=== PATIENT | male | born 1955 | race American Indian/Alaskan Native ===

== ENCOUNTER 2019-11-05 07:08 | Day surgery (SDC) | payer BC ==
[~2019-11-05 07:08] MED LIST: GENTAMICIN/NS 80 MG/100 ML 100 ML IV SCH; LACTATED RINGERS 1,000 ML IV SCH; MIDAZOLAM 2 MG/2 ML INJ IV NR; ceFAZolin/STERILE WATER 2 GM/20 ML SYRINGE IV NR
--- NOTE | 2019-11-05 08:21 | Anesthesia Consultation ---
Anesthesia Consult and Med Hx Date of service: 11/05/19 - Airway Anesthetic Teeth Evaluation: Poor (2 remaining upper incisors) ROM Head & Neck: Adequate Mental/Hyoid Distance: Adequate Mallampati Class: Class III Intubation Access Assessment: Possibly Difficult - Pulmonary Exam CTA: Yes - Cardiac Exam Cardiac Exam: RRR - Pre-Operative Health Status ASA Pre-Surgery Classification: ASA2 Proposed Anesthetic Plan: General - Pulmonary Hx Smoking: Yes (1/2 PPD X 31 YRS) Hx Respiratory Symptoms: No COPD: No Hx Sleep Apnea: No (SHOLA PRE SCREEN LOW RISK.) - Cardiovascular System Hx Hypertension: No Hx Heart Attack/AMI: No Hx Percutaneous Transluminal Coronary Angioplasty (PTCA): No Hx Cardia Arrhythmia: No - Central Nervous System CVA: No - Endocrine Hx Renal Disease: No Hx Liver Disease: No Hx Non-Insulin Dependent Diabetes: Yes Hx Thyroid Disease: No - Other Systems Hx Obesity: Yes (BMI 31)
--- NOTE | 2019-11-05 08:21 | Anesthesia Day of Surgery ---
Anesthesia Day of Surgery - Day of Surgery Patient Examined: Yes Patient H&P Reviewed: Yes Patient is NPO: Yes
[2019-11-05] MEDS ORDERED: fentaNYL 100 MCG/2 ML INJ IV PRN (08:22)
[2019-11-05] MEDS ORDERED: LIDOCAINE MPF (2%) 20 MG/1 ML VIAL 5 ML ONE (09:34)
[2019-11-05] MEDS ORDERED: HYDROmorphone 1 MG/1 ML INJ ONE (09:34)
[2019-11-05] MEDS ORDERED: propofoL 200 MG/20 ML VIAL IV ONE (09:34)
[2019-11-05] MEDS ORDERED: WATER FOR IRRIG STERILE 2000 ML IR ONE (10:20)
--- NOTE | 2019-11-05 10:29 | Short Stay Summary ---
Short Stay Documentation Date of service: 11/05/19 - History H&P: obtained from office - Allergies and Medications Current Medications: Allergies No Known Allergies Allergy (Unverified 10/25/19 16:07) Home Medications Medication Instructions Recorded Confirmed Last Taken Type Fish Oil 1 cap PO DAILY 10/25/19 10/25/19 11/04/19 History Iron 1 tab PO DAILY 10/25/19 10/25/19 11/04/19 History One-Daily Multi-Vitamin 1 tab PO DAILY 10/25/19 10/25/19 11/04/19 History Tamsulosin 0.4 mg PO HS 10/25/19 10/25/19 11/04/19 History metFORMIN 500 mg PO DAILY 10/25/19 10/25/19 11/04/19 History Active Medications Cefazolin Sodium (Ancef/Sterile Water 2 Gm/20 Ml) 2 gm IV PREOP NR Stop: 11/05/19 23:00 Fentanyl (Sublimaze) 50 mcg IV Q5MIN PRN PRN Reason: Pain , Severe (7-10) Stop: 11/05/19 23:00 Gentamicin Sulfate/Sodium Chloride (Gentamicin/Ns 80 Mg/100 Ml) 100 mls @ 200 mls/hr IV Q8H DORINDA Stop: 11/05/19 23:59 Lactated Ringer's (Lactated Ringers) 1,000 mls @ 100 mls/hr IV DIRECT DORINDA Stop: 11/05/19 23:59 Last Admin: 11/05/19 08:20 Dose: 100 mls/hr Documented by: Midazolam HCl (Versed) 2 mg IV PREOP NR Stop: 11/05/19 23:59 Last Admin: 11/05/19 08:22 Dose: 2 mg Documented by: - Brief post op/procedure progress note Date of procedure: 11/05/19 Pre-op diagnosis: elevated psa ,BPH Post-op diagnosis: same Procedure: cysto, rpg, pus bx 110cc gland Anesthesia: GETA Surgeon: TEE HARDY Estimated blood loss: minimal Specimen disposition: to lab (prostate bx) Condition: stable - Hospital course Hospital course: bactrim& norco - pt should have another set of scripts - Disposition Condition at discharge: Stable Disposition: DC-01 TO HOME OR SELFCARE Short Stay Discharge Plan Follow up with: FLORA ZAMARRIPA MD [Primary Care Provider] - 7 Days
[2019-11-05] MEDS ORDERED: ONDANSETRON 4 MG/2 ML INJ ONE (10:36)
--- NOTE | 2019-11-05 11:01 | Fluoroscopy Report ---
INTRAOPERATIVE FLUOROSCOPY: RETROGRADE UROGRAPHY INDICATION: ELEVATED PSA AND BPH. TECHNIQUE: Intraoperative spot images were obtained during the procedure. FINDINGS: There is unremarkable opacification of the ureters and renal collecting systems. Please see the opera tive report for further details. Fluoroscopy Time: 21 seconds. Fluoroscopy Images: 9. Signer Name: Phil Gregorio MD Signed: 11/05/2019 10:56 AM Workstation Name: [id number]
--- NOTE | 2019-11-05 11:24 | Operative Report ---
PREOPERATIVE DIAGNOSES: Elevated PSA, benign prostatic hypertrophy. POSTOPERATIVE DIAGNOSES: Elevated PSA, benign prostatic hypertrophy. PROCEDURE: Cystoscopy, bilateral retrograde pyelograms, transrectal ultrasound and biopsies of prostate (110 mL gland). SURGEON: King Vicente M.D. ANESTHESIA: General. ESTIMATED BLOOD LOSS: Minimal. FLUIDS: Crystalloid. COMPLICATIONS: No complications. INDICATIONS: This patient is a 64-year-old gentleman known to our service with an elevated PSA. He had a previous biopsy in the past that was negative. His PSA continues to increase. I was unable to get an MRI, presents now for evaluation and for biopsy. Risks, benefits, and complications were explained. DESCRIPTION OF PROCEDURE: The patient was taken to the operative suite, placed in the supine position. After adequate general anesthesia, placed in a dorsal lithotomy position, prepped and draped in a sterile fashion. Noonan-cystourethroscopy was performed with a 22-Austrian Storz cystoscope, no urethral abnormalities. His prostate displayed moderate bilobar obstruction. Both ureteral orifices in normal position. Does have some trabeculation diffusely. Bilateral retrograde pyelograms were obtained with an 8-Austrian Kossuth catheter and 8 mL of contrast. No filling defects or obstruction. He does have significant J hooking of the lower ureters. Next, using a transrectal prostate ultrasound, sagittal and transverse images were obtained. Total volume of 110 mL. No suspicious lesions could be appreciated. Template biopsy was taken at the base, mid, and apex bilaterally, 12 cores, 2 cores per sample. The patient tolerated the procedure well. Rectal exam was benign. He was extubated and taken to the recovery room in stable condition, to go home on Bactrim and Dumont. JOB# [id number] [facility]
[2019-11-05] MEDS ORDERED: HYDROcodone/ACETAMINOPHEN 5-325 MG TAB PO PRN (11:30)
[2019-11-05 11:40] VITALS: BP 152/83
--- NOTE | 2019-11-05 12:33 | Post Anesthesia Evaluation ---
- Post Anesthesia Evaluation Patient Participated: Yes Airway Patent: Yes Stable Respiratory Function: Yes Nausea/Vomiting: No Temp > 96.8F: Yes Pain Manageable: Yes Adequeate Hydration: Yes Anesthesia Complications: No
--- NOTE | 2019-11-05 17:12 | Ultrasound Report ---
Intraoperative transrectal Ultrasound HISTORY: ELEVATED PSA. TECHNIQUE: Grayscale and color imaging performed. COMPARISON: None IMPRESSION: Ultrasound guidance provided for transrectal biopsy. Prostatic volume was 118 mL. Please refer to the operative note for complete details. Signer Name: Sergey Arriaga MD Signed: 11/05/2019 5:07 PM Workstation Name: [id number]
== END 2019-11-05 07:09 | disposition home or self-care (01) ==
LOC: OR 07:08
PROVIDERS: ATTEND Urology
DX: R97.20 Elevated prostate specific antigen [PSA] (principal); N40.0 Benign prostatic hyperplasia without lower urinary tract symptoms; Z20.828 Contact with and (suspected) exposure to other viral communicable diseases; E66.9 Obesity, unspecified; E11.9 Type 2 diabetes mellitus without complications; F17.210 Nicotine dependence, cigarettes, uncomplicated; Z79.899 Other long term (current) drug therapy; Z98.890 Other specified postprocedural states; Z68.31 Body mass index [BMI] 31.0-31.9, adult
CPT/HCPCS: 52005; 55700; 74420; 76872; 82962; 88305; A4217; C1758; J0690; J1170; J1580; J2250; J2405; J2704; J7120; Q9967; U0003

== ENCOUNTER 2021-06-08 06:51 | Observation (INO) | payer BC ==
[2021-06-05 10:40] LABS: Hematocrit 44.4 % (35.5-45.6); Hemoglobin 14.6 gm/dl (11.8-15.2); Mean Corpuscular HGB Conc 33 % (32-34); Mean Corpuscular Volume 83 fl (84-94); Platelet Count 237 K/mm3 (140-440); Red Blood Count 5.34 M/mm3 (3.65-5.03); Red Cell Distribution Width 14.3 % (13.2-15.2)
[2021-06-05 11:02] LABS: Alanine Aminotransferase 13 units/L (7-56); Albumin 3.8 g/dL (3.9-5); BUN/Creatinine Ratio 13; Blood Urea Nitrogen 13 mg/dL (9-20); Calcium 9.6 mg/dL (8.4-10.2); Hemolysis Index 15
[2021-06-08] MEDS ORDERED: ceFAZolin/STERILE WATER 2 GM/20 ML SYRINGE IV NR (07:00)
[2021-06-08] MEDS ORDERED: LACTATED RINGERS 1,000 ML ONE (07:14)
[2021-06-08] MEDS ORDERED: ceFAZolin/Water 2 GM/20 ML 2 GM/20 ML SYRINGE IV ONE (07:15)
[2021-06-08] MEDS ORDERED: ONDANSETRON 4 MG/2 ML INJ IV PRN ×2 (08:06→11:18)
[2021-06-08] MEDS ORDERED: HYDROmorphone 1 MG/1 ML INJ IV PRN ×2 (08:06)
--- NOTE | 2021-06-08 08:07 | Anesthesia Day of Surgery ---
Anesthesia Day of Surgery - Day of Surgery Patient Examined: Yes Patient H&P Reviewed: Yes Patient is NPO: Yes Cardiac Clearance: Yes
--- NOTE | 2021-06-08 08:09 | Anesthesia Consultation ---
Anesthesia Consult and Med Hx Date of service: 06/08/21 - Airway Anesthetic Teeth Evaluation: Poor (Worn lower), Edentulous (Upper) ROM Head & Neck: Adequate Mental/Hyoid Distance: Adequate Mallampati Class: Class II Intubation Access Assessment: Good - Pre-Operative Health Status ASA Pre-Surgery Classification: ASA2 Proposed Anesthetic Plan: General - Pulmonary Hx Smoking: Yes (1/2 PPD X 33 YRS) Hx Asthma: No Hx Respiratory Symptoms: No (+2FS) COPD: No Hx Pneumonia: No Hx Sleep Apnea: No (SHOLA PRE SCREEN HIGH RISK) - Cardiovascular System Hx Hypertension: Yes (OFF MEDS X 1 YR) Hx Heart Attack/AMI: No Hx Percutaneous Transluminal Coronary Angioplasty (PTCA): No Hx Cardia Arrhythmia: No Hx Pacemaker: No Hx Internal Defibrillator: No Hx Heart Murmur: No - Central Nervous System Hx Seizures: No CVA: No Hx Back Pain: No Hx Psychiatric Problems: No - Gastrointestinal Hx Gastroesophageal Reflux Disease: No - Endocrine Hx Renal Disease: No Hx End Stage Renal Disease: No Hx Cirrhosis: No Hx Liver Disease: No Hx Non-Insulin Dependent Diabetes: Yes Hx Thyroid Disease: No Hx Hypothyroidism: No - Hematic Hx Anemia: No Hx Sickle Cell Disease: No - Other Systems Hx Alcohol Use: No Hx Substance Use: No Hx Cancer: No Hx Obesity: Yes (BMI 31)
[2021-06-08] MEDS ORDERED: LACTATED RINGERS 1,000 ML IV SCH (09:00)
[2021-06-08] MEDS ORDERED: ONDANSETRON 4 MG/2 ML INJ ONE (09:13)
[2021-06-08] MEDS ORDERED: LIDOCAINE MPF (2%) 20 MG/1 ML VIAL 5 ML ONE (09:13)
[2021-06-08] MEDS ORDERED: fentaNYL 100 MCG/2 ML INJ ONE ×2 (09:14→10:00)
[2021-06-08] MEDS ORDERED: propofoL 200 MG/20 ML VIAL IV ONE (09:14)
[2021-06-08] MEDS ORDERED: SODIUM CHLORIDE 0.9% 1000 ML 1,000 ML ONE (09:21)
[2021-06-08] MEDS ORDERED: HYDROmorphone 1 MG/1 ML INJ ONE (10:04)
[2021-06-08] MEDS ORDERED: dexAMETHasone 20 MG/5 ML VIAL ONE (10:29)
[2021-06-08] MEDS ORDERED: SODIUM CHLORIDE 0.9% IRRIG SOLN 2000 ML IR ONE (11:00)
[2021-06-08] MEDS ORDERED: MANNITOL/SORBITOL SOLUTION 3,000 ML IRRIG.SOLN IR ONE (11:00)
[2021-06-08] MEDS ORDERED: SODIUM CHLORIDE 0.9% 1000 ML IV SOLN IR ONE (11:00)
[2021-06-08] MEDS ORDERED: MORPHINE 2 MG/1 ML INJ IV PRN (11:18)
[2021-06-08] MEDS ORDERED: HYDROcodone/ACETAMINOPHEN 5-325 MG TAB PO PRN (11:18)
[2021-06-08] MEDS ORDERED: NALOXONE 0.4 MG/1 ML INJ IV PRN (11:18)
[2021-06-08] MEDS ORDERED: ACETAMINOPHEN 325 MG TAB PO PRN (11:18)
[2021-06-08] MEDS ORDERED: MORPHINE 4 MG/1 ML INJ IV PRN (11:18)
[2021-06-08] MEDS ORDERED: ZOLPIDEM 5 MG TAB PO PRN (11:18)
--- NOTE | 2021-06-08 11:18 | Short Stay Summary ---
Short Stay Documentation Date of service: 06/08/21 - History H&P: obtained from office - Allergies and Medications Current Medications: Allergies No Known Allergies Allergy (Verified 06/05/21 09:28) Home Medications Medication Instructions Recorded Confirmed Last Taken Type Fish Oil 1 cap PO DAILY 10/25/19 06/05/21 11/04/19 History Iron 1 tab PO DAILY 10/25/19 06/05/21 11/04/19 History One-Daily Multi-Vitamin 1 tab PO DAILY 10/25/19 06/05/21 11/04/19 History Tamsulosin 0.4 mg PO QHS 10/25/19 06/05/21 11/04/19 History metFORMIN 500 mg PO BID 10/25/19 06/05/21 11/04/19 History Active Medications Hydromorphone HCl (Hydromorphone 1 Mg/1 Ml Inj) 0.25 mg IV Q10MIN PRN PRN Reason: Pain, Moderate (4-6) Hydromorphone HCl (Hydromorphone 1 Mg/1 Ml Inj) 0.5 mg IV Q10MIN PRN PRN Reason: Pain , Severe (7-10) Stop: 06/08/21 20:00 Lactated Ringer's (Lactated Ringers) 1,000 mls @ 125 mls/hr IV DIRECT DORINDA Ondansetron HCl (Ondansetron 4 Mg/2 Ml Inj) 4 mg IV ONCE PRN PRN Reason: Nausea And Vomiting - Brief post op/procedure progress note Date of procedure: 06/08/21 Pre-op diagnosis: BPH, RETENTION Post-op diagnosis: other (BLADDER STONE) Procedure: CYSTO, RPG, BLADDER STONE REMOVAL , TURP, GREENLIGHT LASER OF PROSTATE Anesthesia: GETA Surgeon: TEE HARDY Estimated blood loss: 50-100ml Pathology: list (PROSTATE CHIPS) Specimen disposition: to lab Condition: stable - Hospital course Hospital course: BACTRIM & NORCO ON CHART pt feels fine nure irrigated clots this am---clear now rocephin today---- reactive leukocyosis home with greco - Disposition Condition at discharge: Stable Short Stay Discharge Plan Follow up with: FLORA ZAMARRIPA MD [Primary Care Provider] - 7 Days
--- NOTE | 2021-06-08 11:18 | Consultation ---
History of Present Illness - Reason for Consult Consult date: 06/08/21 Medical management Requesting physician: TEE HARDY - History of Present Illness 65 YO Male with Obesity, DM, HTN, Nicotine Dependence, Metabolic Syndrome - Airway Anesthetic Teeth Evaluation: Poor (Worn lower), Edentulous (Upper) ROM Head & Neck: Adequate Mental/Hyoid Distance: Adequate Mallampati Class: Class II Intubation Access Assessment: Good - Pre-Operative Health Status ASA Pre-Surgery Classification: ASA2 Proposed Anesthetic Plan: General - Pulmonary Hx Smoking: Yes (1/2 PPD X 33 YRS) Hx Asthma: No Hx Respiratory Symptoms: No (+2FS) COPD: No Hx Pneumonia: No Hx Sleep Apnea: No (SHOLA PRE SCREEN HIGH RISK) - Cardiovascular System Hx Hypertension: Yes (OFF MEDS X 1 YR) Hx Heart Attack/AMI: No Hx Percutaneous Transluminal Coronary Angioplasty (PTCA): No Hx Cardia Arrhythmia: No Hx Pacemaker: No Hx Internal Defibrillator: No Hx Heart Murmur: No - Central Nervous System Hx Seizures: No CVA: No Hx Back Pain: No Hx Psychiatric Problems: No - Gastrointestinal Hx Gastroesophageal Reflux Disease: No - Endocrine Hx Renal Disease: No Hx End Stage Renal Disease: No Hx Cirrhosis: No Hx Liver Disease: No Hx Non-Insulin Dependent Diabetes: Yes Hx Thyroid Disease: No Hx Hypothyroidism: No - Hematic Hx Anemia: No Hx Sickle Cell Disease: No - Other Systems Hx Alcohol Use: No Hx Substance Use: No Hx Cancer: No Hx Obesity: Yes (BMI 31) Medications and Allergies Allergies Allergy/AdvReac Type Severity Reaction Status Date / Time No Known Allergies Allergy Verified 06/05/21 09:28 Home Medications Medication Instructions Recorded Confirmed Last Taken Type Fish Oil 1 cap PO DAILY 10/25/19 06/05/21 11/04/19 History Iron 1 tab PO DAILY 10/25/19 06/05/21 11/04/19 History One-Daily Multi-Vitamin 1 tab PO DAILY 10/25/19 06/05/21 11/04/19 History Tamsulosin 0.4 mg PO QHS 10/25/19 06/05/21 11/04/19 History metFORMIN 500 mg PO BID 10/25/19 06/05/21 11/04/19 History Active Meds: Active Medications Hydromorphone HCl (Hydromorphone 1 Mg/1 Ml Inj) 0.25 mg IV Q10MIN PRN PRN Reason: Pain, Moderate (4-6) Hydromorphone HCl (Hydromorphone 1 Mg/1 Ml Inj) 0.5 mg IV Q10MIN PRN PRN Reason: Pain , Severe (7-10) Stop: 06/08/21 20:00 Lactated Ringer's (Lactated Ringers) 1,000 mls @ 125 mls/hr IV DIRECT DORINDA Ondansetron HCl (Ondansetron 4 Mg/2 Ml Inj) 4 mg IV ONCE PRN PRN Reason: Nausea And Vomiting Exam - Constitutional Vitals: Temp Pulse Resp BP Pulse Ox 98.6 F 70 16 154/100 98 06/05/21 10:40 06/05/21 10:40 06/05/21 10:40 06/05/21 10:40 06/05/21 10:40 Results - Labs CBC & Chem 7: 06/05/21 09:31 06/05/21 10:40 Labs: Abnormal lab results 06/08/21 Range/Units 08:16 POC Glucose 140 H (70-105) mg/dL
--- NOTE | 2021-06-08 12:57 | Post Anesthesia Evaluation ---
- Post Anesthesia Evaluation Patient Participated: Yes Airway Patent: Yes Stable Respiratory Function: Yes Nausea/Vomiting: No Temp > 96.8F: Yes Pain Manageable: Yes Adequeate Hydration: Yes Anesthesia Complications: No Block Receding Appropriately: Not Applicable Patient on Ventilator: No
[2021-06-08] MEDS ORDERED: SODIUM CHLORIDE IRRI 1000 ML 1,000 ML IR ONE ×2 (13:23→15:26)
--- NOTE | 2021-06-08 13:37 | Operative Report ---
DATE OF SURGERY: 06/08/2021 PREOPERATIVE DIAGNOSES: Benign prostatic hypertrophy, urinary retention. POSTOPERATIVE DIAGNOSES: Benign prostatic hypertrophy, urinary retention. Bladder stone. PROCEDURES: Cystoscopy, removal of bladder stone, transurethral resection of the prostate, GreenLight laser ablation, cystogram. SURGEON: King Vicente MD ANESTHESIA: General. ESTIMATED BLOOD LOSS: Minimal. FLUIDS: Crystalloid. COMPLICATIONS: No complications. INDICATIONS: This patient is a 65-year-old gentleman known to our service with an elevated PSA, underwent prostate biopsy in the past on several occasions, continued to have worsening lower urinary tract symptoms despite medical management and subsequently developed urinary retention. Risks, benefits, and complications were explained. The patient agreed to proceed with surgical intervention. Last PSA was 9. DESCRIPTION OF PROCEDURE: The patient was taken to the operative suite, placed in supine position. After adequate general anesthesia, placed in the dorsal lithotomy position, prepped and draped in a sterile fashion. Pancystourethroscopy was performed with a 22-Burmese Storz cystoscope. No urethral abnormalities. The patient had moderate trilobar obstruction. Ultrasound in the past revealed a 117 gram gland. Due to his large median lobe and trabeculation, I was unable to see the ureteral orifices. Small bladder stone could be appreciated. It was engaged with an alligator graspers and extracted and will be sent for routine pathologic evaluation. Next, using a 27-Burmese resectoscope and loop with cutting and coag on 160 and 60, transurethral resection of the prostate was performed in a systematic fashion, taken down the median lobe, right and left lateral lobes. The patient had some tedious bleeding. The GreenLight laser was then used to further ablate the lateral lobes as well as provide coagulation using a Maxi fiber and energy starting at 80 and then going up to 100 zabala. The patient tolerated the procedure well. Chips were evacuated out with the [employer] evacuator. Adequate hemostasis was achieved. A 24-Burmese 3-way catheter was placed with a stylet, 30 mL in the balloon. Cystogram was performed and no extravasation. Bladder was drained. Flynn drip was attached. Rectal exam was benign. He was extubated and taken to recovery room. He will be observed overnight go home on Bactrim and [place]. TID: [id number] RECEIPT: [id number] [facility]SHRAVAN
[2021-06-08 15:35] LABS: Hematocrit 40.2 % (35.5-45.6); Hemoglobin 13.5 gm/dl (11.8-15.2); Mean Corpuscular HGB Conc 34 % (32-34); Mean Corpuscular Volume 83 fl (84-94); Platelet Count 239 K/mm3 (140-440); Red Blood Count 4.85 M/mm3 (3.65-5.03); Red Cell Distribution Width 14.5 % (13.2-15.2)
--- NOTE | 2021-06-08 16:08 | Fluoroscopy Report ---
Abdominal fluoroscopy INDICATION: Abdominal pain IMPRESSION: Cystogram performed which demonstrated several tiny internal filling defects. No obvious urinary bladder leak identified. Fluoroscopy time: 16 seconds. Fluoroscopic images: 4. Signer Name: Elder Kenney MD Signed: 06/08/2021 4:03 PM Workstation Name: [id number]
[2021-06-08 17:24] LABS: Eosinophils % (Manual) 0 % (0.0-4.3); Platelet Estimate Consistent w Auto; RBC Morphology Normal; Total Cells Counted 100
[2021-06-08] MEDS: ceFAZolin/NS 1 GM/50 ML 1 GM/50 ML BAG IV SCH ×2 (19:25→23:11)
[2021-06-08] MEDS: SODIUM CHLORIDE 0.9% IRRIG SOLN 2000 ML IR SCH ×5 (19:48→23:12)
[2021-06-08] MEDS: SODIUM CHLORIDE 0.9% 1000 ML 1,000 ML IV SCH (21:18)
[2021-06-09] MEDS: SODIUM CHLORIDE 0.9% IRRIG SOLN 2000 ML IR SCH ×12 (00:15→11:36)
[2021-06-09] MEDS: ceFAZolin/NS 1 GM/50 ML 1 GM/50 ML BAG IV SCH (02:31)
[2021-06-09 05:11] LABS: Hematocrit 35.5 % (35.5-45.6); Hemoglobin 11.3 gm/dl (11.8-15.2); Mean Corpuscular HGB Conc 32 % (32-34); Mean Corpuscular Volume 84 fl (84-94); Platelet Count 215 K/mm3 (140-440); Red Blood Count 4.23 M/mm3 (3.65-5.03); Red Cell Distribution Width 14.2 % (13.2-15.2)
[2021-06-09] MEDS: SODIUM CHLORIDE 0.9% 1000 ML 1,000 ML IV SCH (06:18)
[2021-06-09 06:41] LABS: Basophils % (Manual) 0 % (0.0-1.8); Eosinophils % (Manual) 0 % (0.0-4.3); Total Cells Counted 100
[2021-06-09 06:42] LABS: Platelet Estimate Consistent w Auto; RBC Morphology Normal
[2021-06-09] MEDS ORDERED: DEXTROSE 50% IN WATER (25GM) 50 ML SYRINGE IV PRN (08:20)
--- NOTE | 2021-06-09 08:33 | Progress Note ---
Assessment and Plan Assessment and plan: HPI: 65 yo male with pmhx of bph, obesity/metabolic syndrome, DM2, HTN, nicotine dependence presenting to our facility for scheduled TURP procedure by urology due to complaints of urinary retention. IMS consulted for medical management. Assessment: #Urinary Retention s/p turp #Bladder stone status post removal #Essential hypertension #Type 2 diabetes mellitus #Nicotine dependence + 15 min counseling on smoking cessation and benefits/resources for quitting. #Obesity, BMI greater than 30 + 15 min counseling on weight loss/exercise #Metabolic syndrome #Advance care planning Disease education conducted, care plan discussed, diagnoses discussed, prognosis discussed, patient is full code, patient acknowledges understanding and agree with care plan, +30 minutes. Plan: - labs reviewed, leukocytosis likely reactive from surgery. COVID PCR negative. Recorded blood sugars acceptable during this hospitalization. -Hemoglobin drop of approximately 2 points (13 -> 11). Ordered recheck CBC in a.m. - added lisinopril 20 mg po daily for added BP control and added renal protection as patient is a diabetic - accuchecks ac/hs, diabetic diet, low dose regimen sliding scale ordered, hold metformin while patient is in hospital - post op management/CBI for urinary retention as per urology IM service will continue to follow while patient is in hospital. History Interval history: Saw and evaluated the patient at bedside this morning. CBI running with blood clots noted in Hong bag. No acute complaints this morning. Educated patient on medication adjustments made. Hospitalist Physical - Physical exam Narrative exam: Physical Exam: VITAL SIGNS: Reviewed. GENERAL: The patient appears normally developed, Vital signs as documented. Elevated BMI as documented. HEAD: No signs of head trauma. EYES: Pupils are equal. Extraocular motions intact. EARS: Hearing grossly intact. MOUTH: Oropharynx is normal. NECK: No adenopathy, no JVD. CHEST: Chest with clear breath sounds bilaterally. No wheezes, rales, or rhonchi. CARDIAC: Regular rate and rhythm. S1 and S2, without murmurs, gallops, or rubs. VASCULAR: No Edema. Peripheral pulses normal and equal in all extremities. ABDOMEN: Soft, non tender and non distended. No rebound or guarding, and no masses palpated. Bowel Sounds normal. : CBI in place. Hong bag noted with blood clots. MUSCULOSKELETAL: Good range of motion of all major joints. Extremities without clubbing, cyanosis or edema. NEUROLOGIC EXAM: Alert and oriented x 4. no focal sensory or strength deficits. PSYCHIATRIC: Mood normal. SKIN: detail exam as documented in skin assessment - Constitutional Vitals: Temp Pulse Resp BP Pulse Ox 98.8 F 71 20 150/78 95 06/09/21 06:06 06/09/21 06:06 06/09/21 06:06 06/09/21 06:06 06/09/21 06:06 Results - Labs CBC & Chem 7: 06/09/21 04:36 06/05/21 10:40 Labs: Laboratory Last Values WBC 20.2 K/mm3 (4.5-11.0) H 06/09/21 04:36 RBC 4.23 M/mm3 (3.65-5.03) 06/09/21 04:36 Hgb 11.3 gm/dl (11.8-15.2) L 06/09/21 04:36 Hct 35.5 % (35.5-45.6) 06/09/21 04:36 MCV 84 fl (84-94) 06/09/21 04:36 MCH 27 pg (28-32) L 06/09/21 04:36 MCHC 32 % (32-34) 06/09/21 04:36 RDW 14.2 % (13.2-15.2) 06/09/21 04:36 Plt Count 215 K/mm3 (140-440) 06/09/21 04:36 Add Manual Diff Complete 06/09/21 04:36 Total Counted 100 06/09/21 04:36 Seg Neutrophils % Programming Intern 06/08/21 15:12 Seg Neuts % (Manual) 82.0 % (40.0-70.0) H 06/09/21 04:36 Band Neutrophils % 0 % 06/09/21 04:36 Lymphocytes % (Manual) 13.0 % (13.4-35.0) L 06/09/21 04:36 Reactive Lymphs % (Man) 0 % 06/09/21 04:36 Monocytes % (Manual) 5.0 % (0.0-7.3) 06/09/21 04:36 Eosinophils % (Manual) 0 % (0.0-4.3) 06/09/21 04:36 Basophils % (Manual) 0 % (0.0-1.8) 06/09/21 04:36 Metamyelocytes % 0 % 06/09/21 04:36 Myelocytes % 0 % 06/09/21 04:36 Promyelocytes % 0 % 06/09/21 04:36 Blast Cells % 0 % 06/09/21 04:36 Nucleated RBC % Not Reportable 06/09/21 04:36 Seg Neutrophils # Man 16.6 K/mm3 (1.8-7.7) H 06/09/21 04:36 Band Neutrophils # 0.0 K/mm3 06/09/21 04:36 Lymphocytes # (Manual) 2.6 K/mm3 (1.2-5.4) 06/09/21 04:36 Abs React Lymphs (Man) 0.0 K/mm3 06/09/21 04:36 Monocytes # (Manual) 1.0 K/mm3 (0.0-0.8) H 06/09/21 04:36 Eosinophils # (Manual) 0.0 K/mm3 (0.0-0.4) 06/09/21 04:36 Basophils # (Manual) 0.0 K/mm3 (0.0-0.1) 06/09/21 04:36 Metamyelocytes # 0.0 K/mm3 06/09/21 04:36 Myelocytes # 0.0 K/mm3 06/09/21 04:36 Promyelocytes # 0.0 K/mm3 06/09/21 04:36 Blast Cells # 0.0 K/mm3 06/09/21 04:36 WBC Morphology Not Reportable 06/09/21 04:36 Hypersegmented Neuts Not Reportable 06/09/21 04:36 Hyposegmented Neuts Not Reportable 06/09/21 04:36 Hypogranular Neuts Not Reportable 06/09/21 04:36 Smudge Cells Not Reportable 06/09/21 04:36 Toxic Granulation Not Reportable 06/09/21 04:36 Toxic Vacuolation Not Reportable 06/09/21 04:36 Dohle Bodies Not Reportable 06/09/21 04:36 Pelger-Huet Anomaly Not Reportable 06/09/21 04:36 Gerson Rods Not Reportable 06/09/21 04:36 Platelet Estimate Consistent w auto 06/09/21 04:36 Clumped Platelets Not Reportable 06/09/21 04:36 Plt Clumps, EDTA Not Reportable 06/09/21 04:36 Large Platelets Not Reportable 06/09/21 04:36 Giant Platelets Not Reportable 06/09/21 04:36 Platelet Satelliting Not Reportable 06/09/21 04:36 Plt Morphology Comment Not Reportable 06/09/21 04:36 RBC Morphology Normal 06/09/21 04:36 Dimorphic RBCs Not Reportable 06/09/21 04:36 Polychromasia Not Reportable 06/09/21 04:36 Hypochromasia Not Reportable 06/09/21 04:36 Poikilocytosis Not Reportable 06/09/21 04:36 Anisocytosis Not Reportable 06/09/21 04:36 Microcytosis Not Reportable 06/09/21 04:36 Macrocytosis Not Reportable 06/09/21 04:36 Spherocytes Not Reportable 06/09/21 04:36 Pappenheimer Bodies Not Reportable 06/09/21 04:36 Sickle Cells Not Reportable 06/09/21 04:36 Target Cells Not Reportable 06/09/21 04:36 Tear Drop Cells Not Reportable 06/09/21 04:36 Ovalocytes Not Reportable 06/09/21 04:36 Helmet Cells Not Reportable 06/09/21 04:36 Ott-[place] Bodies Not Reportable 06/09/21 04:36 Meridian Rings Not Reportable 06/09/21 04:36 [place] Cells Not Reportable 06/09/21 04:36 Bite Cells Not Reportable 06/09/21 04:36 Crenated Cell Not Reportable 06/09/21 04:36 Elliptocytes Not Reportable 06/09/21 04:36 Acanthocytes (Spur) Not Reportable 06/09/21 04:36 Rouleaux Not Reportable 06/09/21 04:36 Hemoglobin C Crystals Not Reportable 06/09/21 04:36 Schistocytes Not Reportable 06/09/21 04:36 Malaria parasites Not Reportable 06/09/21 04:36 Luisito Bodies Not Reportable 06/09/21 04:36 Hem Pathologist Commnt No 06/09/21 04:36 Sodium 142 mmol/L (137-145) 06/05/21 10:40 Potassium 3.9 mmol/L (3.6-5.0) 06/05/21 10:40 Chloride 105.5 mmol/L (98-107) 06/05/21 10:40 Carbon Dioxide 27 mmol/L (22-30) 06/05/21 10:40 Anion Gap 13 mmol/L 06/05/21 10:40 BUN 13 mg/dL (9-20) 06/05/21 10:40 Creatinine 1.0 mg/dL (0.8-1.3) 06/05/21 10:40 Estimated GFR > 60 ml/min 06/05/21 10:40 BUN/Creatinine Ratio 13 % 06/05/21 10:40 Glucose 145 mg/dL (75-100) H 06/05/21 10:40 POC Glucose 130 mg/dL (70-105) H 06/08/21 22:51 Calcium 9.6 mg/dL (8.4-10.2) 06/05/21 10:40 Total Bilirubin 0.30 mg/dL (0.1-1.2) 06/05/21 10:40 AST 15 units/L (5-40) 06/05/21 10:40 ALT 13 units/L (7-56) 06/05/21 10:40 Alkaline Phosphatase 96 units/L (35-129) 06/05/21 10:40 Total Protein 7.6 g/dL (6.3-8.2) 06/05/21 10:40 Albumin 3.8 g/dL (3.9-5) L 06/05/21 10:40 Albumin/Globulin Ratio 1.0 % 06/05/21 10:40 SARS-CoV-2 (PCR) Negative (Negative) 06/05/21 10:30 Hong/IV: Voiding Method Indwelling Catheter Active Medications - Current Medications Current Medications: Generic Name Dose Route Start Last Admin Trade Name Freq PRN Reason Stop Dose Admin Acetaminophen 650 mg 06/08/21 11:18 Acetaminophen 325 Mg Tab PO Q4H PRN Pain, Mild (1-3)/Fever > 100.5 Hydrocodone Bitart/Acetaminophen 2 each 06/08/21 11:18 06/08/21 17:22 Hydrocodone/Acetaminophen 5-325 Mg Tab PO 2 each Q4H PRN Administration Pain, Moderate (4-6) Ferrous Sulfate 325 mg 06/09/21 10:00 Ferrous Sulfate 325 Mg Tab PO DAILY DORINDA Fish Oil 1,000 mg 06/09/21 10:00 [place]-3 Fatty Acids/Fish Oil 1 Gram Cap PO QDAY DORINDA Hydromorphone HCl 0.25 mg 06/08/21 08:06 Hydromorphone 1 Mg/1 Ml Inj IV Q10MIN PRN Pain, Moderate (4-6) Lactated Ringer's 1,000 mls @ 125 mls/hr 06/08/21 09:00 06/08/21 08:23 Lactated Ringers IV 125 mls/hr DIRECT DORINDA Administration Sodium Chloride 1,000 mls @ 100 mls/hr 06/08/21 11:30 06/09/21 06:18 Nacl 0.9% 1000 Ml IV 100 mls/hr DIRECT DORINDA Administration Morphine Sulfate 2 mg 06/08/21 11:18 Morphine 2 Mg/1 Ml Inj IV Q4H PRN Pain, Moderate (4-6) Morphine Sulfate 4 mg 06/08/21 11:18 Morphine 4 Mg/1 Ml Inj IV Q4H PRN Pain , Severe (7-10) Multivitamins 1 each 06/09/21 10:00 Multivitamins ,Therapeutic Tab PO DAILY [facility] Naloxone HCl 0.1 mg 06/08/21 11:18 Naloxone 0.4 Mg/1 Ml Inj IV Q2MIN PRN Res Rate </= 8 or 02 SAT < 92% Ondansetron HCl 4 mg 06/08/21 11:18 Ondansetron 4 Mg/2 Ml Inj IV Q8H PRN Nausea And Vomiting Sodium Chloride 2,000 ml 06/08/21 13:00 06/09/21 06:40 Sodium Chloride 0.9% Irrig Soln 2000 Ml IR 2,000 ml DIRECT DORINDA Administration Zolpidem Tartrate 5 mg 06/08/21 11:18 Zolpidem 5 Mg Tab PO QHS PRN Sleep
[2021-06-09] MEDS ORDERED: IRON PO SCH (10:00)
[2021-06-09] MEDS ORDERED: MULTIVITAMINS ,THERAPEUTIC TAB PO SCH (10:00)
[2021-06-09] MEDS ORDERED: LISINOPRIL 20 MG TAB PO SCH (10:00)
[2021-06-09] MEDS ORDERED: OMEGA-3 FATTY ACIDS/FISH OIL 1 GRAM CAP PO SCH (10:00)
[2021-06-09] MEDS ORDERED: [UNRECOGNIZED DRUG - OTHER] PO SCH (10:00)
[2021-06-09] MEDS ORDERED: FISH OIL PO SCH (10:00)
[2021-06-09] MEDS ORDERED: FERROUS SULFATE 325 MG TAB PO SCH (10:00)
[2021-06-09] MEDS ORDERED: INSULIN LISPRO 100 UNIT/ML SUB-Q SCH (11:30)
[2021-06-09 12:09] VITALS: BP 128/74
[2021-06-09] MEDS ORDERED: cefTRIAXone/NS 1 GM/50 ML 1 GM/50 ML BAG IV SCH (13:00)
== END 2021-06-09 15:20 | disposition home health service (06) ==
LOC: OR 06:51 → 3A 11:18
PROVIDERS: ADMIT Urology; ATTEND Urology
DX: N40.1 Benign prostatic hyperplasia with lower urinary tract symptoms (principal); Z20.822 Contact with and (suspected) exposure to COVID-19; R33.8 Other retention of urine; D72.829 Elevated white blood cell count, unspecified; I10 Essential (primary) hypertension; E11.9 Type 2 diabetes mellitus without complications; E86.0 Dehydration; E66.9 Obesity, unspecified; F17.210 Nicotine dependence, cigarettes, uncomplicated; Z68.31 Body mass index [BMI] 31.0-31.9, adult; Z79.899 Other long term (current) drug therapy; Z98.890 Other specified postprocedural states
CPT/HCPCS: 36415; 52647; 74430; 80053; 82962; 85025; 85027; 88305; 96365; 96366; 96375; 99406; G0378; J0690; J0696; J1100; J1170; J2270; J2405; J2704; J3010; J3490; J7030; J7120; Q9967; U0003; 85007